=== PATIENT | male | born 1960 | race Caucasian/White ===

== ENCOUNTER 2016-06-15 00:41 | Emergency (ER) | payer SELFPAY ==
[~2016-06-15] VITALS: Ht 182.9 cm; Wt 80.2 kg
[~2016-06-15 00:41] MED LIST: AUGM875T PO; PHENTAB PO
[2016-06-15 00:51] VITALS: BP 141/91; PULSE 99; RESP 18; TEMP 99.3; O2SAT 96
--- NOTE | 2016-06-15 02:02 | PD ---
HPI Chief Complaint: Cold / Flu Symptoms Time Seen by Provider: 01:59 Travel History International Travel<30 days: No Contact w/Intl Traveler<30days: No Traveled to known affect area: No History of Present Illness HPI The patient is a 55-year-old male that complains of a cough productive of yellow -green sputum, sore throat and rhinorrhea for 2 days. He does have a history of his right tympanic membrane being deformed. Apparently, I saw this on my last exam. He can hear very well out of his right ear but does have some pain there now. He denies any drainage out of his right ear. He denies any chest pain or shortness of breath. He quit smoking 3 months ago. 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 [facility] Past Medical History Anxiety: Yes Cardiac Catheterization: Yes (NORMAL RESULTS) Cardiovascular Problems: Yes (MITRAL VALVE PROLAPSE, IRREGULAR HEART BEAT.) Diminished Hearing: No GERD: Yes Musculoskeletal: Yes (CHRONIC BACK PAIN R/T INJURY 02/05) Immunizations Current: No Tetanus Vaccination: Unknown Influenza Vaccination: No Past Surgical History Abdominal Surgery: Yes (HERNIA REPAIR) Appendectomy: Yes Other Surgery: Yes (DOUBLE HERNIA REPAIR CHILD) Social History Alcohol Use: No Tobacco Use: No (1/2 pdd) Substance Use: No Allergies-Medications (Allergen,Severity, Reaction): Coded Allergies: No Known Allergies (Verified , 06/15/16) Reported Meds & Prescriptions Reported Meds & Active Scripts Active Active Prescriptions or Reported Medications Unobtainable Review of Systems Except as stated in HPI: all other systems reviewed are Neg Physical Exam Narrative GENERAL: Well-nourished, well-developed patient in minimal apparent distress with his upper respiratory symptoms. His vital signs show temperature 99.3 and blood pressure 141/91 but are otherwise normal. SKIN: Warm and dry. HEAD: Normocephalic. EYES: No scleral icterus. No injection or drainage. NECK: Supple, trachea midline. No JVD or lymphadenopathy. CARDIOVASCULAR: Regular rate and rhythm without murmurs, gallops, or rubs. RESPIRATORY: Breath sounds equal bilaterally. No accessory muscle use. Lungs clear to auscultation bilaterally. GASTROINTESTINAL: Abdomen soft, non-tender, nondistended. MUSCULOSKELETAL: No cyanosis, or edema. BACK: Nontender without obvious deformity. No CVA tenderness. ENT: Right tympanic membrane is distorted and there may be a fluid level behind that tympanic membrane. Left tympanic membrane and canal is normal. The right canal is normal. Data Data Last Documented VS Vital Signs Date Time Temp Pulse Resp B/P Pulse Ox O2 Delivery O2 Flow Rate FiO2 06/15/16 01:02 96 18 97 Room Air 06/15/16 00:51 99.3 141/91 Orders Group A Rapid Strep Screen (06/15/16 02:02) Strep Culture (Group A) (06/15/16 02:10) MDM Medical Decision Making Medical Screen Exam Complete: Yes Emergency Medical Condition: Yes Medical Record Reviewed: Yes Interpretation(s) The strep screen is negative for group A strep antigen. Acute right otitis media Differential Diagnosis Viral upper respiratory infection, pneumonia, bronchitis, strep pharyngitis Narrative Course There is no evidence clinically of pneumonia. The patient's lungs are completely clear. The strep screen is negative for group A strep. The patient has a distorted right tympanic membrane. There is an apparent pus/fluid level seen beyond the tympanic membrane. Impression: Acute right otitis media, Viral upper respiratory infection Plan: The patient will be given amoxicillin 500 mg 3 times daily. He has no insurance so the 500 mg was prescribed so that he can pick this up at [facility]. Diagnosis Primary Impression: Acute right otitis media Additional Impression: Viral upper respiratory infection Additional Instructions: As we discussed, this prescription can be filled for free at [facility] pharmacy. It is one tablet 3 times a day for 10 days. Do not expect your cold ymptoms to go away because the antibiotic will treat the ear infection but can do nothing for a virus. Follow-up with your primary care physician next week Med/Other Pt SpecificInfo: Prescription(s) given Scripts Amoxicillin 500 Mg [id number] Mg PO TID 10 Days Ref 0 Prov:Cash Larson MD 06/15/16 Disposition: 01 DISCHARGE HOME Condition: Stable Cash Larson MD Jun 15, 2016 02:02
[2016-06-15] MEDS ORDERED: AMOX500C PO (02:41)
[2016-06-15] MEDS ORDERED: AMOXICILLIN (TRIHYDRATE) 500 MG CAP PO ONE (02:45)
[2016-06-15 02:52] VITALS: BP 138/82; PULSE 84; RESP 18; O2SAT 97
== END 2016-06-15 02:56 | disposition home or self-care (01) ==
LOC: PHED 00:41
DX: H66.91 Otitis media, unspecified, right ear (principal); J06.9 Acute upper respiratory infection, unspecified
CPT/HCPCS: 87081; 87880; 99283

== ENCOUNTER 2017-04-10 01:13 | Emergency (ER) | payer SELFPAY ==
[~2017-04-10] VITALS: Ht 182.9 cm; Wt 75.2 kg
[~2017-04-10 01:13] MED LIST changes: +AMOX500C PO; -AUGM875T PO; -PHENTAB PO
[2017-04-10 01:17] VITALS: BP 151/86; PULSE 78; RESP 20; TEMP 98.3; O2SAT 97
[2017-04-10] MEDS ORDERED: HUMIBIDDM PO (01:24)
[2017-04-10 02:22] VITALS: BP 157/90; PULSE 76; RESP 20; O2SAT 96
--- NOTE | 2017-04-10 04:08 | PD ---
HPI Chief Complaint: Cold / Flu Symptoms Time Seen by Provider: 04:05 Travel History International Travel<30 days: No Contact w/Intl Traveler<30days: No Traveled to known affect area: No History of Present Illness HPI The patient is a 56-year-old male who is had a cough and nasal congestion for 5 days. He denies any fever. He states he knows it is probably a cold but he wants to make sure is not in his lungs. He would like a chest x-ray. He denies any nausea, vomiting or diarrhea. The patient used to be a heavy smoker but now he is down to 1/5 pack a day and he is trying to quit. PFSH Past Medical History Anxiety: Yes Cardiac Catheterization: Yes (NORMAL RESULTS) Cardiovascular Problems: Yes (MITRAL VALVE PROLAPSE, IRREGULAR HEART BEAT.) Diminished Hearing: No GERD: Yes Musculoskeletal: Yes (CHRONIC BACK PAIN R/T INJURY 02/05) Immunizations Current: No Tetanus Vaccination: > 5 Years Influenza Vaccination: No Past Surgical History Abdominal Surgery: Yes (HERNIA REPAIR) Appendectomy: Yes Other Surgery: Yes (DOUBLE HERNIA REPAIR CHILD) Social History Alcohol Use: No Tobacco Use: Yes (2-3 CIGS/DAY ) Substance Use: No Allergies-Medications (Allergen,Severity, Reaction): Coded Allergies: No Known Allergies (Verified Adverse Reaction, Unknown, 04/10/17) Reported Meds & Prescriptions Reported Meds & Active Scripts Active Guaifenesin AC Liq (Guaifenesin-Codeine Liq) 100-10 Mg/5 Ml Syrp 10 Ml PO Q4H PRN Reported Mucinex DM (Dextromethorphan-Guaifenesin) 30-600 Mg Tab 2 Tab PO BID PRN Review of Systems Except as stated in HPI: all other systems reviewed are Neg Physical Exam Narrative GENERAL: Well-nourished, well-developed patient in no respiratory distress. His vital signs show blood pressure 151/86 but the rest the vital signs are normal. SKIN: Focused skin assessment warm/dry. No skin rash is present. HEAD: Normocephalic. EYES: No scleral icterus. No injection or drainage. NECK: Supple, trachea midline. No JVD or lymphadenopathy. CARDIOVASCULAR: Regular rate and rhythm without murmurs, gallops, or rubs. RESPIRATORY: Breath sounds equal bilaterally. No accessory muscle use. Lungs clear to auscultation bilaterally. GASTROINTESTINAL: Abdomen soft, non-tender, nondistended. MUSCULOSKELETAL: No cyanosis, or edema. BACK: Nontender without obvious deformity. No CVA tenderness. Data Data Last Documented VS Vital Signs Date Time Temp Pulse Resp B/P (MAP) Pulse Ox O2 Delivery O2 Flow Rate FiO2 04/10/17 02:22 20 96 Room Air 04/10/17 02:22 76 157/90 (112) 04/10/17 01:17 98.3 Orders Orders Chest, Pa & Lat (04/10/17 04:05) MDM Medical Decision Making Medical Screen Exam Complete: Yes Emergency Medical Condition: Yes Medical Record Reviewed: Yes Interpretation(s) The chest x-ray shows no acute cardiopulmonary disease. Differential Diagnosis Viral upper respiratory infection, bronchitis, pneumonia Narrative Course The patient has a viral upper respiratory infection. There is no evidence for bronchitis or pneumonia and his lungs are clear to auscultation. Plan: The patient is most symptomatic with his cough and he will get a codeine containing cough syrup. Diagnosis Primary Impression: Viral upper respiratory infection Additional Instructions: The cough syrup can make you little sleepy so do not combine it with alcohol and be careful driving with cough syrup. Drink plenty of liquids, rest and follow-up with a primary care physician next week. Med/Other Pt SpecificInfo: Prescription(s) given Scripts Guaifenesin-Codeine Liq (Guaifenesin AC Liq) 100-10 Mg/5 Ml Syrp 10 ML PO Q4H Y for COUGH, #1 BOTTLE 0 Refills Prov: Cash Larson MD 04/10/17 Disposition: 01 DISCHARGE HOME Condition: Stable Cash Larson MD Apr 10, 2017 04:08
--- NOTE | 2017-04-10 04:33 | RADRPT ---
EXAM DATE/TIME: 04/10/2017 04:22 [facility] COMPARISON: No previous studies available for comparison. INDICATIONS : Cough. MEDICAL HISTORY : None. SURGICAL HISTORY : None. ENCOUNTER: Initial ACUITY: 4 - 6 days PAIN SCORE: 0/10 LOCATION: Bilateral chest FINDINGS: PA and lateral views of the chest demonstrate the lungs to be symmetrically aerated without evidence of mass, infiltrate or effusion. The cardiomediastinal contours are unremarkable. Osseous structure s are intact. CONCLUSION: No acute intrathoracic disease. Konrad Moctezuma MD on April 10, 2017 at 4:30 Board Certified Radiologist. This report was verified electronically.
[2017-04-10] MEDS ORDERED: GUAISYP4 PO (04:51)
[2017-04-10 04:58] VITALS: BP 141/94
== END 2017-04-10 05:12 | disposition home or self-care (01) ==
LOC: PHED 01:13
DX: J06.9 Acute upper respiratory infection, unspecified (principal); R05 Cough; Z72.0 Tobacco use; K21.9 Gastro-esophageal reflux disease without esophagitis
CPT/HCPCS: 71046; 99283

== ENCOUNTER 2017-08-13 00:19 | Emergency (ER) | END 2017-08-13 02:12 | disposition home or self-care (01) | DX: L03.011 Cellulitis of right finger (principal); K21.9 Gastro-esophageal reflux disease without esophagitis; Z23 Encounter for immunization; Z72.0 Tobacco use; Z86.79 Personal history of other diseases of the circulatory system; Z87.39 Personal history of other diseases of the musculoskeletal system and connective tissue ==

== ENCOUNTER 2017-08-16 00:09 | Emergency (ER) | payer SELFPAY ==
[~2017-08-16] VITALS: Ht 182.9 cm; Wt 75.6 kg
[~2017-08-16 00:09] MED LIST changes: -AMOX500C PO; +CEPH-460 PO; +TRAV0.00 EACH EYE
[2017-08-16 00:12] VITALS: BP 166/84; PULSE 62; RESP 18; TEMP 97.8; O2SAT 98
--- NOTE | 2017-08-16 01:17 | PD ---
HPI Chief Complaint: Wound/Suture/Staple Re-Check Time Seen by Provider: 01:16 Travel History International Travel<30 days: No Contact w/Intl Traveler<30days: No Traveled to known affect area: No History of Present Illness HPI 56-year-old male presents to the emergency department for wound check . Patient states site looks much improved. No ascending erythema no worsening edema no increased warmth and no purulent drainage. Patient denies other concerns or complaints and states he is just been compliant with discharge recommendations PENDING SALE TO [facility] Past Medical History Narrative Medical Anxiety mitral valve prolapse irregular heartbeat; hernia repair; nursing notes reviewed Anxiety: Yes Cardiac Catheterization: Yes (NORMAL RESULTS) Cardiovascular Problems: Yes (MITRAL VALVE PROLAPSE, IRREGULAR HEART BEAT.) Diminished Hearing: No GERD: Yes Musculoskeletal: Yes (CHRONIC BACK PAIN R/T INJURY 02/05) Immunizations Current: No Past Surgical History Abdominal Surgery: Yes (HERNIA REPAIR) Appendectomy: Yes Other Surgery: Yes (DOUBLE HERNIA REPAIR CHILD) Social History Alcohol Use: No Tobacco Use: Yes (QUIT 08/08/17) Substance Use: No Allergies-Medications (Allergen,Severity, Reaction): Coded Allergies: No Known Allergies (Verified Adverse Reaction, Unknown, 08/16/17) Reported Meds & Prescriptions Reported Meds & Active Scripts Active Keflex (Cephalexin) 500 Mg Cap 500 Mg PO Q6H 10 Days Reported Travatan Z Opth Drops (Travoprost) 0.004 % Soln 1 Drop EACH EYE HS Review of Systems Except as stated in HPI: all other systems reviewed are Neg Physical Exam Narrative GENERAL: Well-developed well-nourished male no acute distress no respiratory distress SKIN: Warm and dry. HEAD: Normocephalic. EYES: No scleral icterus. No injection or drainage. NECK: Supple, trachea midline. No JVD or lymphadenopathy. CARDIOVASCULAR: Regular rate and rhythm without murmurs, gallops, or rubs. RESPIRATORY: Breath sounds equal bilaterally. No accessory muscle use. GASTROINTESTINAL: Abdomen soft, non-tender, nondistended. MUSCULOSKELETAL: No cyanosis, or edema. Attention right upper extremity right third finger with minimal redness no flexion leg edema and no active drainage intact range of motion of digits; capillary refill brisk and less than 2 seconds BACK: Nontender without obvious deformity. No CVA tenderness. Data Data Last Documented VS Vital Signs Date Time Temp Pulse Resp B/P (MAP) Pulse Ox O2 Delivery O2 Flow Rate FiO2 08/16/17 01:09 20 08/16/17 00:12 97.8 62 166/84 (111) 98 Orders Orders Ed Discharge Order (08/16/17 01:17) MDM Medical Decision Making Medical Screen Exam Complete: Yes Emergency Medical Condition: Yes Medical Record Reviewed: Yes Differential Diagnosis Paronychia cellulitis abscess healing I&D Narrative Course 56-year-old male voicing no concerns or complaints here for a 2 hour recheck for management of paronychia patient aware that he could have stayed home but thought he would come to the emergency room for evaluation. No other concerns or complaints identified. Patient shows good evidence of healing I&D site. Diagnosis Primary Impression: Encounter for wound re-check Referrals: Primary Care Physician call for appointment Patient Instructions: General Instructions Additional Instructions: Complete course of antibiotic Continue keep site clean and dry Follow-up with your primary care provider Return to the emergency department for any concerns Disposition: 01 DISCHARGE HOME Condition: Stable Tonya Damon MD August 16, 2017 01:17
== END 2017-08-16 01:47 | disposition home or self-care (01) ==
LOC: PHED 00:09
DX: L03.011 Cellulitis of right finger (principal)
CPT/HCPCS: 99281